=== PATIENT | female | born 1975 | race Caucasian/White ===

== ENCOUNTER → 2019-12-16 14:18 | Outpatient (REF) | payer OTHER, SELFPAY | LOC: ANHLAB 14:18 | PROVIDERS: Visit Provider Nurse Practitioner | DX: C44.719 Basal cell carcinoma of skin of left lower limb, including hip (principal) | CPT/HCPCS: 88305 ==

== ENCOUNTER → 2020-01-26 10:11 | Outpatient (REF) | payer OTHER, SELFPAY | LOC: ANHLAB 10:11 | PROVIDERS: Visit Provider Nurse Practitioner | DX: C44.719 Basal cell carcinoma of skin of left lower limb, including hip (principal); L90.5 Scar conditions and fibrosis of skin | CPT/HCPCS: 88305; 88331 ==